=== PATIENT | female | born 1995 | race Caucasian/White ===

== ENCOUNTER 2021-10-20 16:43 | Emergency (ER) | payer BC ==
[~2021-10-20] VITALS: Ht 167.6 cm; Wt 99.8 kg
[2021-10-20] MEDS ORDERED: IPRATROPIUM BROMIDE 0.5 MG/2.5 ML NEBU ONE (17:10)
[2021-10-20] MEDS ORDERED: ALBUTEROL SULFATE 2.5 MG/3 ML NEBU ONE (17:10)
[2021-10-20] MEDS ORDERED: predniSONE 20 MG TABLET ONE (17:13)
[2021-10-20] MEDS ORDERED: predniSONE 10 MG TABLET PO ONE (17:15)
[2021-10-20] MEDS ORDERED: IPRATROPIUM BROMIDE 0.5 MG/2.5 ML NEBU NEB ONE (17:15)
[2021-10-20] MEDS ORDERED: ALBUTEROL SULFATE 2.5 MG/3 ML NEBU NEB ONE (17:15)
[2021-10-20] MEDS ORDERED: PRED20TA PO (18:04)
--- NOTE | 2021-10-20 18:14 | NUR ---
PT WAS EVALUATED BY DR SMITH. PT WAS D/C'd TO HOME. D/C INSTRUCTIONS GIVEN TO THE PT BY DR SMITH.
[2021-10-20 18:16] VITALS: BP 135/88
[2021-10-25] MEDS ORDERED: PRED50TA PO (09:10)
[2021-10-25] MEDS ORDERED: FLUT1DIS28 INH (09:10)
[2021-10-25] MEDS ORDERED: MONT10TA22 PO (09:10)
[2021-10-25] MEDS ORDERED: ALBU18HF2 INH (09:12)
== END 2021-10-20 18:17 | disposition home or self-care (01) ==
LOC: ER 16:43
DX: J98.01 Acute bronchospasm (principal); R06.00 Dyspnea, unspecified; R06.03 Acute respiratory distress
CPT/HCPCS: 99284; 71045; 94640; J7512; J3590

== ENCOUNTER 2021-10-20 19:35 | Inpatient (IN) | payer BC ==
[~2021-10-20] VITALS: Ht 167.6 cm; Wt 99.8 kg
[~2021-10-20 19:35] MED LIST: PRED20TA PO
[2021-10-20] MEDS ORDERED: IV NS 1000 ML 1,000 ML IV ONE (20:15)
[2021-10-20] MEDS ORDERED: methylPREDNISolone SOD SUCC 40 MG/ML VIAL IV ONE (20:15)
[2021-10-20] MEDS ORDERED: IPRATROPIUM BROMIDE 0.5 MG/2.5 ML NEBU NEB ONE (20:15)
[2021-10-20] MEDS ORDERED: OXYCODONE/APAP 5-325 MG TABLET PO ONE (20:15)
[2021-10-20] MEDS ORDERED: ALBUTEROL SULFATE 2.5 MG/3 ML NEBU NEB ONE (20:15)
[2021-10-20] MEDS ORDERED: ALBUTEROL SULFATE 2.5 MG/3 ML NEBU ONE (20:18)
[2021-10-20] MEDS ORDERED: IPRATROPIUM BROMIDE 0.5 MG/2.5 ML NEBU ONE (20:18)
[2021-10-20 20:40] LABS: HEMATOCRIT 39.7 % (31.2-41.9); MEAN CORPUSCULAR HEMOGLOBIN 29.9 uug (24.7-32.8); MEAN CORPUSCULAR VOLUME 90.4 fL (75.5-95.3); PLATELET COUNT (AUTO) 332 K/uL (179-408)
[2021-10-20] MEDS ORDERED: methylPREDNISolone SOD SUCC 40 MG/ML VIAL ONE (20:50)
[2021-10-20] MEDS ORDERED: MAGNESIUM SULFATE/D5W 100 ML ONE (20:51)
[2021-10-20] MEDS ORDERED: OXYCODONE/APAP 5-325 MG TABLET ONE (20:51)
[2021-10-20 21:05] LABS: CREATININE 1.1 mg/dL (0.6-1.3); POTASSIUM 3.7 mmol/L (3.5-5.1)
[2021-10-20] MEDS: MAGNESIUM SULFATE/D5W 100 ML IV SCH ×3 (21:05→23:50)
[2021-10-20] MEDS ORDERED: MAGNESIUM SULFATE/D5W 200 ML ONE (21:12)
--- NOTE | 2021-10-20 22:26 | NUR ---
Paged Epic Panel for admission, waiting for epic panel to call back.
[2021-10-20] MEDS ORDERED: MAGNESIUM HYDROXIDE 30 ML LIQUID UDC PO PRN (22:30)
[2021-10-20] MEDS ORDERED: ENOXAPARIN SODIUM 40 MG/0.4 ML DISP.SYRIN SQ ONE (22:45)
--- NOTE | 2021-10-20 23:52 | NUR ---
Report given to Jostin BURDEN Tele.
[2021-10-21] MEDS ORDERED: levoFLOXacin 500 MG/D5W 500 MG in PREMIXED 1 EACH IV SCH (00:25)
[2021-10-21 01:00] VITALS: BP 134/78
[2021-10-21] MEDS: ONDANSETRON 4 MG/2 ML VIAL IV PRN (01:09)
[2021-10-21] MEDS: ACETAMINOPHEN 325 MG TABLET PO PRN (01:09)
--- NOTE | 2021-10-21 01:18 | NUR ---
per outside pharmacy, pt received a dose in ER Addendum: 10/21/21 at 0119 by KARINA SALAS RN * a dose of Lovenox
[2021-10-21] MEDS ORDERED: levoFLOXacin 500 MG/D5W 100 ML ONE (02:02)
[2021-10-21] MEDS: IPRATROPIUM BROMIDE 0.5 MG/2.5 ML NEBU NEB SCH ×5 (03:01→23:07)
[2021-10-21] MEDS: LEVALBUTEROL HCL NEB 0.63 MG/3 ML NEBU NEB PRN ×2 (03:25→16:26)
[2021-10-21 04:00] VITALS: BP 126/78
[2021-10-21] MEDS ORDERED: methylPREDNISolone SOD SUCC 40 MG/ML VIAL IV SCH (06:00)
[2021-10-21 06:31] LABS: HEMATOCRIT 37.8 % (31.2-41.9); MEAN CORPUSCULAR HEMOGLOBIN 30.5 uug (24.7-32.8); MEAN CORPUSCULAR VOLUME 90.9 fL (75.5-95.3); PLATELET COUNT (AUTO) 335 K/uL (179-408)
[2021-10-21 06:46] LABS: BILIRUBIN,TOTAL 0.1 mg/dL (0.2-1.0); CREATININE 0.8 mg/dL (0.6-1.3); MAGNESIUM 2.4 mg/dL (1.8-2.4); PHOSPHOROUS 2.3 mg/dL (2.5-4.9); POTASSIUM 4.1 mmol/L (3.5-5.1); TOTAL PROTEIN, SERUM 7.9 g/dL (6.4-8.2)
[2021-10-21] MEDS ORDERED: LEVALBUTEROL HCL 1.25 MG/0.5 ML NEB NEB SCH (07:35)
[2021-10-21] MEDS ORDERED: ENOXAPARIN SODIUM 40 MG/0.4 ML DISP.SYRIN SQ SCH (09:00)
[2021-10-21] MEDS: PANTOPRAZOLE SODIUM 40 MG VIAL IV SCH (09:05)
[2021-10-21] MEDS: ENOXAPARIN SODIUM 40 MG/0.4 ML DISP.SYRIN SQ SCH (09:06)
--- NOTE | 2021-10-21 10:24 | NUR ---
DR SAUCEDO [facility] HERE AND SEEN PATIENT WITH NEW ORDERS AND NOTED.
[2021-10-21 12:29] VITALS: BP 130/70
[2021-10-21] MEDS: LEVALBUTEROL HCL 1.25 MG/0.5 ML NEB NEB SCH ×3 (13:38→23:07)
[2021-10-21] MEDS ORDERED: IPRATROPIUM BROMIDE 0.5 MG/2.5 ML NEBU NEB SCH (15:30)
[2021-10-21] MEDS ORDERED: NEUTRA PHOS PACKET PO ONE (16:00)
[2021-10-21 16:33] VITALS: BP 126/63
[2021-10-21] MEDS: IV NS 1000 ML 1,000 ML IV PRN (16:43)
--- NOTE | 2021-10-21 18:00 | NUR ---
RESTING IN BED WITH O2 NEEDED OCCASSIONAL EXTRA BREATHING TREATMENT IN ADDITION TO HER ROUTINE AND HELPFUL IVF IN PROGRESS WILL CONTINUE TO OBSERVE.
[2021-10-21 20:00] VITALS: BP 128/70
[2021-10-22] VITALS: BP 115/56
[2021-10-22] MEDS: levoFLOXacin 500 MG/D5W 500 MG in PREMIXED 1 EACH IV SCH (03:22)
[2021-10-22] MEDS: LEVALBUTEROL HCL NEB 0.63 MG/3 ML NEBU NEB PRN ×2 (03:55→16:49)
[2021-10-22 04:00] VITALS: BP 117/71
[2021-10-22] MEDS: IPRATROPIUM BROMIDE 0.5 MG/2.5 ML NEBU NEB SCH ×3 (07:04→21:08)
[2021-10-22] MEDS: LEVALBUTEROL HCL 1.25 MG/0.5 ML NEB NEB SCH ×3 (07:04→21:08)
[2021-10-22 07:17] LABS: HEMATOCRIT 37.5 % (31.2-41.9); MEAN CORPUSCULAR HEMOGLOBIN 30.3 uug (24.7-32.8); MEAN CORPUSCULAR VOLUME 91.6 fL (75.5-95.3); PLATELET COUNT (AUTO) 347 K/uL (179-408)
[2021-10-22] MEDS: IV NS 1000 ML 1,000 ML IV PRN (07:32)
[2021-10-22 07:45] LABS: CREATININE 0.7 mg/dL (0.6-1.3); PHOSPHOROUS 3.5 mg/dL (2.5-4.9); POTASSIUM 4.6 mmol/L (3.5-5.1)
[2021-10-22] MEDS: methylPREDNISolone SOD SUCC 40 MG/ML VIAL IV SCH (08:32)
[2021-10-22] MEDS: PANTOPRAZOLE SODIUM 40 MG VIAL IV SCH (08:33)
[2021-10-22] MEDS: ENOXAPARIN SODIUM 40 MG/0.4 ML DISP.SYRIN SQ SCH (08:34)
--- NOTE | 2021-10-22 10:00 | NUR ---
PATIENT SEEN BY DR POLO WITH NEW ORDERS AND NOTED PATIENT IS AWAKE ALERT AND ORIENTED WITH O2 WITH NO SOB AT THIS TIME OCCASSIONAL DRY COUGH BUT PATIENT STATED THAT SHE IS BRINGING UP SOME SCANTY AMOUNT OF PHLEGM CALL LIGHT AND PERSONAL BELONGINGS ARE WITHIN EASY REACH.MADE COMFORTABLE WILL CONTINUE TO OBSERVE.
--- NOTE | 2021-10-22 11:00 | NUR ---
DR DOYLE HERE TO SEE PATIENT WITH NEW ORDERS AND NOTED.
[2021-10-22 12:00] VITALS: BP 133/92
[2021-10-22] MEDS: ACETAMINOPHEN 325 MG TABLET PO PRN ×2 (14:08→20:02)
--- NOTE | 2021-10-22 14:08 | NUR ---
C/O HEADACHE MEDICATED WITH TYLENOL ORDERED AND STATED WAS HELPFUL.
[2021-10-22 16:00] VITALS: BP 128/83
[2021-10-22] MEDS ORDERED: methylPREDNISolone SOD SUCC 40 MG/ML VIAL IV ONE (16:00)
--- NOTE | 2021-10-22 17:45 | NUR ---
PATIENT IS RESTING MIDLINE LEFT UPPER ARM IS INTACT AND PATENT MADE COMFORTABLE WILL CONTINUE TO OBSERVE
--- NOTE | 2021-10-22 19:55 | NUR ---
Noted patient with frequent cough, inspite of getting breathing treatment. Informed Dr. Gonzalez and obtained order for Robitussin DM 10mg every 6 hours PRN for cough. Order noted and will carry out.
[2021-10-22 20:00] VITALS: BP 126/77
[2021-10-22] MEDS: GUAIFENESIN/DEXTROMETHORPHAN 5 ML UDC PO PRN (20:02)
[2021-10-23] VITALS: BP 128/87
[2021-10-23] MEDS: levoFLOXacin 500 MG/D5W 500 MG in PREMIXED 1 EACH IV SCH (01:05)
[2021-10-23] MEDS: IPRATROPIUM BROMIDE 0.5 MG/2.5 ML NEBU NEB SCH ×4 (01:34→18:07)
[2021-10-23] MEDS: LEVALBUTEROL HCL 1.25 MG/0.5 ML NEB NEB SCH ×4 (01:35→18:07)
[2021-10-23 04:00] VITALS: BP 127/83
[2021-10-23] MEDS: GUAIFENESIN/DEXTROMETHORPHAN 5 ML UDC PO PRN ×3 (04:04→20:56)
--- NOTE | 2021-10-23 05:48 | NUR ---
In no acute distress.Coughing relieved with the use of Robitussin DM 10mg PO every 6 hrs PRN. O2 at 2LPM via NC PRN for comfort. Sinus tachy on tele with HR of 107/min. Midline on left upper arm and IV site on right AC remains intact and patent. No adverse reaction noted from IV antibiotic. Needs attended to and met. Safety measure maintained and call light within reached.
[2021-10-23] MEDS: PANTOPRAZOLE SODIUM 40 MG TABLET.DR PO SCH (06:16)
[2021-10-23] MEDS: methylPREDNISolone SOD SUCC 40 MG/ML VIAL IV SCH (09:15)
[2021-10-23] MEDS: ENOXAPARIN SODIUM 40 MG/0.4 ML DISP.SYRIN SQ SCH (09:16)
[2021-10-23] MEDS: LEVALBUTEROL HCL NEB 0.63 MG/3 ML NEBU NEB PRN ×3 (11:21→18:07)
[2021-10-23 11:40] VITALS: BP 122/85
[2021-10-23 15:42] VITALS: BP 148/91
--- NOTE | 2021-10-23 18:55 | NUR ---
Patient still noted with coughing and episodes of SOB. Wheezing also noted to auscultation.t states breathing is improved but not back to her baseline. Per patient she is not ready to go home due to this episodes of coughing with SOB. Patient noted to take oxygen on and off during these episodes. Patient is aware of goal of being on RA upon discharge. Telemetry continues to be Sinus tachy 110's- 130's. With non sustained HR in 160's when ambulating and performing morning hygiene. All needs attended.
[2021-10-23 20:00] VITALS: BP 138/86
[2021-10-23] MEDS ORDERED: MELATONIN 3 MG TABLET PO PRN (22:30)
[2021-10-23] MEDS: MELATONIN 3 MG TABLET PO PRN (23:03)
[2021-10-24] MEDS: IPRATROPIUM BROMIDE 0.5 MG/2.5 ML NEBU NEB SCH ×4 (00:13→19:03)
[2021-10-24] MEDS: LEVALBUTEROL HCL 1.25 MG/0.5 ML NEB NEB SCH ×4 (00:14→19:03)
[2021-10-24 00:24] VITALS: BP 128/81
[2021-10-24] MEDS: levoFLOXacin 500 MG/D5W 500 MG in PREMIXED 1 EACH IV SCH (02:09)
[2021-10-24 04:00] VITALS: BP 136/84
--- NOTE | 2021-10-24 06:05 | NUR ---
Slept throughout the night. IV site intact, tolerated all medications. Tolerated breathing treatments, denies SOB at this time. Able to ambulate without assistance. No pertinent events throughout the night. Will endorse to day shift.
[2021-10-24] MEDS: PANTOPRAZOLE SODIUM 40 MG TABLET.DR PO SCH (06:42)
[2021-10-24] MEDS: methylPREDNISolone SOD SUCC 40 MG/ML VIAL IV SCH (09:50)
[2021-10-24] MEDS: ENOXAPARIN SODIUM 40 MG/0.4 ML DISP.SYRIN SQ SCH (09:51)
[2021-10-24 12:00] VITALS: BP 134/89
[2021-10-24] MEDS: GUAIFENESIN/DEXTROMETHORPHAN 5 ML UDC PO PRN ×2 (12:04→22:27)
[2021-10-24 16:00] VITALS: BP 124/80
[2021-10-24] MEDS ORDERED: methylPREDNISolone SOD SUCC 40 MG/ML VIAL IV ONE (16:00)
[2021-10-24] MEDS: HYDROCODONE BIT/HOMATROPINE 5 ML UDC PO PRN ×2 (17:10→23:32)
[2021-10-24 20:03] VITALS: BP 135/83
[2021-10-24] MEDS ORDERED: levoFLOXacin 500 MG TABLET PO SCH (22:00)
[2021-10-24] MEDS: MELATONIN 3 MG TABLET PO PRN (22:27)
[2021-10-24] MEDS: LEVALBUTEROL HCL NEB 0.63 MG/3 ML NEBU NEB PRN (22:40)
[2021-10-25] VITALS: BP 138/83
[2021-10-25] MEDS: LEVALBUTEROL HCL 1.25 MG/0.5 ML NEB NEB SCH ×2 (01:16→07:21)
[2021-10-25] MEDS: IPRATROPIUM BROMIDE 0.5 MG/2.5 ML NEBU NEB SCH ×2 (01:16→07:22)
[2021-10-25 04:00] VITALS: BP 100/58
--- NOTE | 2021-10-25 05:51 | NUR ---
Slept throughout the night. No distress noted at this time. Given cough medication as needed. Tolerated nebulizer treatments. Pt still coughing and audibly wheezing at times. Denies pain. Will endorse to day shift.
[2021-10-25] MEDS: PANTOPRAZOLE SODIUM 40 MG TABLET.DR PO SCH (06:16)
[2021-10-25 07:27] LABS: HEMATOCRIT 40.6 % (31.2-41.9); MEAN CORPUSCULAR HEMOGLOBIN 30.2 uug (24.7-32.8); PLATELET COUNT (AUTO) 472 K/uL (179-408)
[2021-10-25 07:35] LABS: CREATININE 0.9 mg/dL (0.6-1.3); MAGNESIUM 2.4 mg/dL (1.8-2.4); PHOSPHOROUS 4.6 mg/dL (2.5-4.9); POTASSIUM 4.2 mmol/L (3.5-5.1)
[2021-10-25] MEDS: methylPREDNISolone SOD SUCC 40 MG/ML VIAL IV SCH (08:37)
[2021-10-25] MEDS: ENOXAPARIN SODIUM 40 MG/0.4 ML DISP.SYRIN SQ SCH (08:37)
[2021-10-25] MEDS: HYDROCODONE BIT/HOMATROPINE 5 ML UDC PO PRN (08:41)
[2021-10-25] MEDS ORDERED: PRED50TA PO (09:10)
[2021-10-25] MEDS ORDERED: MONT10TA22 PO (09:10)
[2021-10-25] MEDS ORDERED: FLUT1DIS28 INH (09:10)
[2021-10-25] MEDS ORDERED: ALBU18HF2 INH (09:12)
[2021-10-25] MEDS: ONDANSETRON 4 MG/2 ML VIAL IV PRN (11:30)
--- NOTE | 2021-10-25 14:02 | NUR ---
Pt is a/o x 4, no complaint of shortness of breath at this time. Pt is discharged home, picked up by . All discharge education provided, prescribed medication education provided, all personal belongings at hand. Pt is not in any acute distress. IV and ID bands removed. medications sent electronically to preferred pharmacy.
[2021-10-25] MEDS ORDERED: MONTELUKAST SODIUM 10 MG TABLET PO SCH (18:00)
== END 2021-10-25 14:00 | disposition home or self-care (01) | DRG 202 ==
LOC: ER 19:35 → TELE3 22:34 → MEDSURG3 10-25 09:10
PROVIDERS: ADMIT Nurse Practitioner Acute Care; ATTEND Internal Medicine
PROC: 05H633Z Insertion of Infusion Device into Left Subclavian Vein, Percutaneous Approach (ICD-10-PCS; principal; 2021-10-22)
PROC: B547ZZA Ultrasonography of Left Subclavian Vein, Guidance (ICD-10-PCS; 2021-10-22)
DX: J45.902 Unspecified asthma with status asthmaticus (principal); J96.01 Acute respiratory failure with hypoxia; E66.9 Obesity, unspecified; Z68.35 Body mass index [BMI] 35.0-35.9, adult; Z20.822 Contact with and (suspected) exposure to COVID-19; Z86.16 Personal history of COVID-19; Z86.32 Personal history of gestational diabetes; K76.0 Fatty (change of) liver, not elsewhere classified; J06.9 Acute upper respiratory infection, unspecified
CPT/HCPCS: 36415; 71045; 83735; 84100; 85025; 93005; 94640; A4663; C9113; G0378; J1650; J1956; J2405; J2920; J3475; J3590; J7040; J7614

== ENCOUNTER 2022-09-10 20:51 | Emergency (ER) | payer BC ==
[~2022-09-10] VITALS: Ht 167.6 cm; Wt 98.9 kg
[~2022-09-10 20:51] MED LIST changes: +ALBU18HF2 INH; +FLUT1DIS28 INH; +MONT10TA22 PO; +PRED50TA PO
[2022-09-10 21:01] VITALS: O2SAT 97
[2022-09-10] MEDS ORDERED: ONDANSETRON 4 MG/2 ML VIAL IV ONE (21:45)
[2022-09-10] MEDS ORDERED: ACETAMINOPHEN ES 500 MG TABLET PO ONE (21:45)
[2022-09-10] MEDS ORDERED: IV NORMAL SALINE 1000 ML BAG IV ONE (21:45)
[2022-09-10] MEDS ORDERED: FAMOTIDINE. 20 MG/2 ML VIAL IV ONE (21:45)
[2022-09-10 22:19] LABS: MEAN CORPUSCULAR HEMOGLOBIN 29.7 uug (24.7-32.8); MEAN CORPUSCULAR VOLUME 87.9 fL (75.5-95.3); PLATELET COUNT (AUTO) 301 K/uL (179-408)
[2022-09-10 22:23] LABS: CREATININE 0.8 mg/dL (0.6-1.3); POTASSIUM 4.1 mmol/L (3.5-5.1)
[2022-09-10 22:30] LABS: BILIRUBIN,DIRECT 0.1 mg/dL (0.0-0.2); BILIRUBIN,TOTAL 0.5 mg/dL (0.2-1.0); TOTAL PROTEIN, SERUM 7.8 g/dL (6.4-8.2)
--- NOTE | 2022-09-10 22:45 | NUR ---
PT LEFT AFTER BEING SEEN BY MD.
== END 2022-09-10 22:45 | disposition left against medical advice (07) ==
LOC: ER 20:51
DX: R11.2 Nausea with vomiting, unspecified (principal); R19.7 Diarrhea, unspecified; R10.9 Unspecified abdominal pain; J45.909 Unspecified asthma, uncomplicated; Z79.899 Other long term (current) drug therapy
CPT/HCPCS: 36415; 83690; 85025; A4663

== ENCOUNTER 2023-03-03 13:58 | Emergency (ER) | payer BC ==
[~2023-03-03] VITALS: Ht 167.6 cm; Wt 95.3 kg
[2023-03-03 14:00] VITALS: O2SAT 99
[2023-03-03] MEDS ORDERED: ACET1TAB23 PO (14:14)
[2023-03-03] MEDS ORDERED: AMOX-430 PO (14:15)
== END 2023-03-03 14:21 | disposition home or self-care (01) ==
LOC: ER 13:58
DX: T70.0XXA Otitic barotrauma, initial encounter (principal); J45.909 Unspecified asthma, uncomplicated; Z79.899 Other long term (current) drug therapy; X58.XXXA Exposure to other specified factors, initial encounter
CPT/HCPCS: A4606; A4663

== ENCOUNTER 2023-03-23 09:51 | Emergency (ER) | payer BC ==
[~2023-03-23] VITALS: Ht 170.2 cm; Wt 98.0 kg
[~2023-03-23 09:51] MED LIST changes: +ACET1TAB23 PO; +AMOX-430 PO
[2023-03-23] MEDS ORDERED: ACETAMINOPHEN ES 500 MG TABLET ONE (10:13)
[2023-03-23] MEDS: ACETAMINOPHEN ES 500 MG TABLET PO ONE (10:17)
[2023-03-23] MEDS: IV NORMAL SALINE 1000 ML BAG IV ONE (10:25)
[2023-03-23 10:35] LABS: BASOPHILS % (AUTO) 0.3 % (0.0-2.0); EOSINOPHILS # (AUTO) 0.1 K/uL (0.0-0.7); EOSINOPHILS % (AUTO) 1.3 % (0.0-7.0); HEMATOCRIT 38.2 % (31.2-41.9); HEMOGLOBIN 12.9 g/dL (10.9-14.3); LYMPHOCYTES # (AUTO) 1.3 K/uL (0.8-4.8); LYMPHOCYTES % (AUTO) 14.6 % (20.5-51.5); MEAN CORPUSCULAR HEMOGLOBIN 29.6 uug (24.7-32.8); MEAN CORPUSCULAR HGB CONC 34 g/dL (32.3-35.6); MEAN CORPUSCULAR VOLUME 87.9 fL (75.5-95.3); MONOCYTES # (AUTO) 0.4 K/uL (0.1-1.30); NEUTROPHILS # (AUTO) 7.1 K/uL (1.8-8.9); NEUTROPHILS % (AUTO) 78.8 % (38.5-71.5); PLATELET COUNT (AUTO) 312 K/uL (179-408); RED BLOOD CELL COUNT(AUTO) 4.35 MIL/uL (3.63-4.92); RED CELL DISTRIBUTION WIDTH 13.1 % (12.3-17.7)
[2023-03-23 10:37] LABS: DIFFERENTIAL COMMENT 1
[2023-03-23 10:50] LABS: ALANINE AMINOTRANSFERASE 25 U/L (14-59); ALBUMIN 3.4 g/dL (3.4-5.0); ALKALINE PHOSPHATASE 84 U/L (50-136); ASPARTATE AMINOTRANSFERASE 8 U/L (15-37); BILIRUBIN,DIRECT 0.2 mg/dL (0.0-0.2); BILIRUBIN,TOTAL 0.4 mg/dL (0.2-1.0); CALCIUM 8.8 mg/dL (8.5-10.1); CARBON DIOXIDE 29 mmol/L (21-32); CHLORIDE 102 mmol/L (98-107); CREATININE 0.6 mg/dL (0.6-1.3); GLUCOSE 116 mg/dL (74-106); SODIUM SERUM 137 mmol/L (136-145); TOTAL PROTEIN, SERUM 7.9 g/dL (6.4-8.2); UREA NITROGEN, BLOOD 11 mg/dL (7-18)
[2023-03-23] MEDS ORDERED: KETOROLAC TROMETHAMINE 15 MG INJ ONE (11:25)
[2023-03-23] MEDS: KETOROLAC TROMETHAMINE 15 MG INJ IVP ONE (11:27)
[2023-03-23] MEDS ORDERED: DEXAMETHASONE SOD PHOSPHATE 10 MG INJ ONE (12:29)
[2023-03-23] MEDS ORDERED: IBUP-1957 PO (12:29)
[2023-03-23] MEDS ORDERED: MORPHINE SULFATE 4 MG/1 ML DISP.SYRIN ONE (12:29)
[2023-03-23] MEDS ORDERED: ONDANSETRON 4 MG/2 ML VIAL ONE (12:29)
[2023-03-23] MEDS: ONDANSETRON 4 MG/2 ML VIAL IV ONE (12:33)
[2023-03-23] MEDS: MORPHINE SULFATE 4 MG/1 ML DISP.SYRIN IV ONE (12:33)
[2023-03-23] MEDS: DEXAMETHASONE SOD PHOSPHATE 4 MG INJ IV ONE (12:33)
[2023-03-23 14:02] VITALS: BP 123/84; O2SAT 98
== END 2023-03-23 14:03 | disposition home or self-care (01) ==
LOC: ER 09:51
DX: A87.9 Viral meningitis, unspecified (principal); J45.909 Unspecified asthma, uncomplicated; F41.9 Anxiety disorder, unspecified; Z79.899 Other long term (current) drug therapy
CPT/HCPCS: 36415; 71045; 83605; 84484; 85025; 87040; 93005; A4606; A4663; A9150; J1100; J1885; J2270; J2405; J7040

== ENCOUNTER 2023-10-07 18:33 | Emergency (ER) | payer BC ==
[~2023-10-07] VITALS: Ht 167.6 cm; Wt 104.3 kg
[~2023-10-07 18:33] MED LIST changes: +IBUP-1957 PO
[2023-10-07] MEDS ORDERED: NAPR-1009 PO (19:02)
[2023-10-07] MEDS ORDERED: AMOX-430 PO (19:02)
[2023-10-07] MEDS ORDERED: KETOROLAC TROMETHAMINE 30 MG INJ ONE (19:21)
[2023-10-07] MEDS: KETOROLAC TROMETHAMINE 30 MG INJ IM ONE (19:28)
[2023-10-07] MEDS ORDERED: LIDOCAINE HCL 1% 20 ML VIAL ONE (19:47)
[2023-10-07] MEDS ORDERED: CEFTRIAXONE 1 G VIAL ONE (19:47)
[2023-10-07] MEDS: CEFTRIAXONE 1 G VIAL IM ONE (20:01)
[2023-10-07 20:03] VITALS: BP 144/82; TEMP 97.8; O2SAT 99
== END 2023-10-07 20:03 | disposition home or self-care (01) ==
LOC: ER 18:34
DX: H66.93 Otitis media, unspecified, bilateral (principal); J45.909 Unspecified asthma, uncomplicated; Z79.1 Long term (current) use of non-steroidal anti-inflammatories (NSAID); Z79.52 Long term (current) use of systemic steroids; Z79.899 Other long term (current) drug therapy
CPT/HCPCS: 99284; 96372 ×2; J0696; J1885; J3490; A4606; A4663